=== PATIENT | male | born 1955 | race Two or more races ===

== ENCOUNTER 2023-03-25 12:55 | Inpatient (IN) | payer OTHER ==
[~2023-03-25] VITALS: Ht 177.8 cm; Wt 121.1 kg
[2023-03-26] MEDS ORDERED: DOXAZOSIN MESYLA2 MG PO (13:57)
[2023-03-26] MEDS ORDERED: ZESTRIL40 M1 PO (13:57)
[2023-03-26] MEDS ORDERED: HYDRALAZINE PO (13:58)
[2023-03-26] MEDS ORDERED: NIFE60TA3 PO (13:58)
[2023-03-26] MEDS ORDERED: GLUMETZA500 MG PO (13:59)
[2023-03-26] MEDS ORDERED: LIPIT PO (13:59)
[2023-03-26] MEDS ORDERED: KAPSPARGO SPRIN50 MG PO (13:59)
[2023-03-26] MEDS ORDERED: SINGULAIR10 MG PO (14:00)
[2023-03-26] MEDS ORDERED: RESTORIL PO (14:00)
[2023-03-26] MEDS ORDERED: TRELE IN (14:01)
[2023-03-26] MEDS ORDERED: FLONASE PO (14:01)
[2023-03-28] MEDS ORDERED: TRELEGY ELLIPT1 EAC1 (07:59)
[2023-03-28] MEDS ORDERED: GABAPENTIN100 M2 (07:59)
[2023-03-28] MEDS ORDERED: RESTORIL15 MG (07:59)
[2023-03-28] MEDS ORDERED: FLONASE16 GM (07:59)
[2023-03-28] MEDS ORDERED: ATORVASTATIN CA10 MG (08:00)
[2023-03-28] MEDS ORDERED: CENTRUM MEN'S1 EACH (08:00)
[2023-03-28] MEDS ORDERED: FOLIC ACID0.4 MG (08:00)
[2023-03-28] MEDS ORDERED: HYDRALAZINE HCL50 MG (08:00)
[2023-03-28] MEDS ORDERED: ESOMEPRAZOLE MA20 MG (08:00)
== END 2023-04-16 13:09 | disposition home or self-care (01) | DRG 329 ==
LOC: SURH 03-28 07:00 → O/R 03-28 07:21 → SURH 03-28 11:30 → MEDJ 04-04 17:33
PROVIDERS: ADMIT Surgery; ATTEND Surgery
PROC: 07BB4ZZ Excision of Mesenteric Lymphatic, Percutaneous Endoscopic Approach (ICD-10-PCS; 2023-03-28)
PROC: 0DBU4ZZ Excision of Omentum, Percutaneous Endoscopic Approach (ICD-10-PCS; 2023-03-28)
PROC: 4A12X4Z Monitoring of Cardiac Electrical Activity, External Approach (ICD-10-PCS; 2023-03-28)
PROC: 0DTF4ZZ Resection of Right Large Intestine, Percutaneous Endoscopic Approach (ICD-10-PCS; principal; 2023-03-28 07:00)
PROC: 02HV33Z Insertion of Infusion Device into Superior Vena Cava, Percutaneous Approach (ICD-10-PCS; 2023-04-01)
PROC: 30233N1 Transfusion of Nonautologous Red Blood Cells into Peripheral Vein, Percutaneous Approach (ICD-10-PCS; 2023-04-01)
PROC: B24BZZZ Ultrasonography of Heart with Aorta (ICD-10-PCS; 2023-04-08)
DX: C18.2 Malignant neoplasm of ascending colon (principal); U07.1 COVID-19; T80.211A Bloodstream infection due to central venous catheter, initial encounter; K56.7 Ileus, unspecified; K92.1 Melena; K91.89 Other postprocedural complications and disorders of digestive system; N39.0 Urinary tract infection, site not specified; R78.81 Bacteremia; Z16.12 Extended spectrum beta lactamase (ESBL) resistance; D64.9 Anemia, unspecified; J47.9 Bronchiectasis, uncomplicated; K59.09 Other constipation; E78.5 Hyperlipidemia, unspecified; R59.0 Localized enlarged lymph nodes; E66.01 Morbid (severe) obesity due to excess calories; Z79.4 Long term (current) use of insulin; G47.33 Obstructive sleep apnea (adult) (pediatric); I12.9 Hypertensive chronic kidney disease with stage 1 through stage 4 chronic kidney disease, or unspecified chronic kidney disease; E11.22 Type 2 diabetes mellitus with diabetic chronic kidney disease; N18.30 Chronic kidney disease, stage 3 unspecified; I48.91 Unspecified atrial fibrillation; B96.1 Klebsiella pneumoniae [K. pneumoniae] as the cause of diseases classified elsewhere; B96.20 Unspecified Escherichia coli [E. coli] as the cause of diseases classified elsewhere; Z20.822 Contact with and (suspected) exposure to COVID-19